=== PATIENT | male | born 2000 | race Caucasian/White ===

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

== ENCOUNTER 2018-01-04 21:26 | Emergency (ER) | payer OTHER, MEDICAID ==
[~2018-01-04] VITALS: Ht 177.8 cm; Wt 90.9 kg
[~2018-01-04 21:26] MED LIST: HYDROCODON-ACE1 EAC7 PO
[2018-01-04 21:36] VITALS: Ht 177.8 cm; Wt 90.9 kg
[2018-01-05] MEDS ORDERED: TORADOL10 MG PO (02:08)
[2018-01-05 02:43] VITALS: BP 113/77
== END 2018-01-05 02:30 | disposition home or self-care (01) ==
LOC: D.ER 21:26
DX: S99.921A Unspecified injury of right foot, initial encounter (principal); W20.8XXA Other cause of strike by thrown, projected or falling object, initial encounter; Y93.89 Activity, other specified; Y92.019 Unspecified place in single-family (private) house as the place of occurrence of the external cause; S99.911A Unspecified injury of right ankle, initial encounter

== ENCOUNTER 2018-04-01 21:48 | Emergency (ER) | payer OTHER, MEDICAID ==
[~2018-04-01] VITALS: Ht 177.8 cm; Wt 90.9 kg
[~2018-04-01 21:48] MED LIST changes: +TORADOL10 MG PO
[2018-04-01 22:02] VITALS: BP 115/60; Ht 177.8 cm; Wt 90.9 kg
[2018-04-01] MEDS ORDERED: VIBRAMYCIN 100100 MG PO (23:42)
[2018-04-01] MEDS ORDERED: VOLTAREN75 MG PO (23:42)
== END 2018-04-01 23:25 | disposition home or self-care (01) ==
LOC: D.ER 21:48
DX: S61.213A Laceration without foreign body of left middle finger without damage to nail, initial encounter (principal); W26.8XXA Contact with other sharp object(s), not elsewhere classified, initial encounter; Y93.89 Activity, other specified; Y92.019 Unspecified place in single-family (private) house as the place of occurrence of the external cause; F17.200 Nicotine dependence, unspecified, uncomplicated

== ENCOUNTER 2018-05-09 20:52 | Emergency (ER) | payer MEDICAID ==
[~2018-05-09] VITALS: Ht 177.8 cm; Wt 95.5 kg
[~2018-05-09 20:52] MED LIST changes: +VIBRAMYCIN 100100 MG PO; +VOLTAREN75 MG PO
[2018-05-09 21:00] VITALS: Ht 177.8 cm; Wt 95.5 kg
[2018-05-09] MEDS ORDERED: MUPIROCIN22 GM TOPICAL (22:07)
[2018-05-09] MEDS ORDERED: BACTRIM DS1 TAB PO (22:07)
[2018-05-09 22:45] VITALS: BP 141/66
== END 2018-05-09 22:46 | disposition home or self-care (01) ==
LOC: D.ER 20:52
DX: L02.415 Cutaneous abscess of right lower limb (principal); F17.200 Nicotine dependence, unspecified, uncomplicated